=== PATIENT | female | born 1975 | race Caucasian/White ===

== ENCOUNTER 2020-06-04 12:35 | Emergency (ER) | payer MEDICARE, MEDICAID, SELFPAY ==
[2020-06-04 12:35] VITALS: BP 150/105; PULSE 100; RESP 20; TEMP 37.1; O2SAT 100; BMI 19.5
[2020-06-04 12:44] VITALS: BP 136/96; PULSE 96; RESP 16; O2SAT 100
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
[2020-06-04 13:18] LABS: Basophils % 0.5 %; Eosinophils # 0.1 10^3/uL (0.0-0.8); Hematocrit 45.3 % (37.0-47.0); Hemoglobin 14.6 g/dL (11.5-15.3); Lymphocytes # 2.7 10^3/uL (0.8-4.8); Lymphocytes % 33.3 %; Mean Corpuscular HGB Conc 32.2 g/dL (30.0-36.0); Mean Corpuscular Hemoglobin 30.2 pg (28.0-34.0); Mean Corpuscular Volume 93.8 fL (81-99); Mean Platelet Volume 10.1 fL (7.4-10.4); Monocytes # 0.4 10^3/uL (0.2-0.9); Monocytes % 5.3 %; Neutrophils # 4.75 10^3/uL (1.8-7.7); Neutrophils % 59.4 %; Nucleated Red Blood Cells % 0 %; Platelet Count 438 10^3/cmm (130-400); Red Blood Count 4.83 10^6/uL (4.1-5.3); Red Cell Distribution Width 12.4 % (12.1-15.1)
[2020-06-04 13:19] LABS: Alanine Aminotransferase 17 U/L (0-33); Albumin Level 4.5 g/dL (3.5-5.2); Alkaline Phosphatase 135 IU/L (35-105); Anion Gap 15.3 (5-19); Aspartate Amino Transferase 27 U/L (0-32); Blood Urea Nitrogen 9 mg/dL (6-20); Calcium 9.6 mg/dL (8.5-10.5); Carbon Dioxide 27 mmol/L (22-29); Chloride 98 mmol/L (98-107); Globulin 3.8 g/dL (1.3-4.6); Glomerular Filtration Rate 135.3 mL/min (90-130); Glucose 111 mg/dL (65-115); Lipase 37 U/L (13-60); Osmolality Calculated 281 mOsm/kg (285-295); Potassium 4.3 mmol/L (3.5-5.1); Sodium 136 mmol/L (136-145); Total Bilirubin 0.2 mg/dL (0.15-1.2); Total Protein 8.3 g/dL (6.6-8.7)
[2020-06-04] MEDS: iohexol 300 mg/mL 100 mL Btl IV (13:31)
[2020-06-04] MEDS: morphine 4 mg/mL SDV 1 mL IVP (14:37)
[2020-06-04] MEDS: ondansetron 2 mg/ML SDV 2 mL 4 MG IVP (14:37)
--- NOTE | 2020-06-04 14:49 | XRR_ITS ---
PROCEDURE INFORMATION: Exam: XR Chest, 1 View Exam date and time: 06/04/2020 2:50 PM Age: 44 years old Clinical indication: Condition or disease; Lung condition and disease; Pneumothorax; Additional info: L small pneomothorax TECHNIQUE: Imaging protocol: XR of the chest Views: 1 view. COMPARISON: CT chest abd pel w con* 06/04/2020 1:28 PM FINDINGS: Lungs: Unremarkable. No consolidation. Pleural space: Unremarkable. No pleural effusion. No pneumothorax. Heart/Mediastinum: Unremarkable. No cardiomegaly. Bones/joints: Unremarkable. XR/XR chest 1V portable [id number] IMPRESSION: No acute findings.
[2020-06-04 15:01] VITALS: BP 133/94; PULSE 109; RESP 21; O2SAT 98
[2020-06-04 15:18] VITALS: BP 133/84; PULSE 97; RESP 22; O2SAT 95
== END 2020-06-04 15:20 | disposition other institution (70) ==
PROVIDERS: Emergency Provider Family Medicine; Family Provider Physician Assistant Medical; PCP Nurse Practitioner Family
DX: S22.42XA Multiple fractures of ribs, left side, initial encounter for closed fracture (principal); S22.078A Other fracture of T9-T10 vertebra, initial encounter for closed fracture; S22.088A Other fracture of T11-T12 vertebra, initial encounter for closed fracture; S36.030A Superficial (capsular) laceration of spleen, initial encounter; S12.9XXA Fracture of neck, unspecified, initial encounter; Z86.19 Personal history of other infectious and parasitic diseases; V89.2XXA Person injured in unspecified motor-vehicle accident, traffic, initial encounter
CPT/HCPCS: 12345; 36415; 51702; 70450; 71045; 71260; 72125; 74177; 80053; 83690; 85025; 86850; 86900; 96374; 96375; 99283; J2270; J2405; Q9967

== ENCOUNTER 2022-04-27 19:20 | Emergency (ER) | payer MEDICARE, SELFPAY ==
[2022-04-27 19:50] VITALS: BP 124/83; PULSE 111; RESP 22; TEMP 37.4; O2SAT 96; BMI 18.5
[2022-04-27 20:36] LABS: Basophils % 0.7 %; Eosinophils % 0.3 %; Hematocrit 40.8 % (37.0-47.0); Hemoglobin 13.6 g/dL (11.5-15.3); Lymphocytes # 0.6 10^3/uL (0.8-4.8); Lymphocytes % 9.7 %; Mean Corpuscular HGB Conc 33.3 g/dL (30.0-36.0); Mean Corpuscular Hemoglobin 31.9 pg (28.0-34.0); Mean Corpuscular Volume 95.6 fl (81-99); Mean Platelet Volume 11.5 fL (7.4-10.4); Monocytes # 0.6 10^3/uL (0.2-0.9); Monocytes % 9.4 %; Neutrophils # 4.76 10^3/uL (1.8-7.7); Neutrophils % 79.7 %; Nucleated Red Blood Cells % 0 %; Platelet Count 191 10^3/cmm (130-400); Red Blood Count 4.27 10^6/uL (4.1-5.3)
[2022-04-27] MEDS: promethazine 25 mg/mL SDV 1 mL IM (20:50)
[2022-04-27 21:02] LABS: Alanine Aminotransferase 12 U/L (0-33); Albumin Level 4.2 g/dL (3.5-5.2); Alkaline Phosphatase 87 U/L (35-105); Anion Gap 14.6 (5-19); Aspartate Amino Transferase 15 U/L (0-32); Blood Urea Nitrogen 4 mg/dL (6-20); Calcium 9.2 mg/dL (8.5-10.5); Carbon Dioxide 22 mmol/L (22-29); Chloride 103 mmol/L (98-107); Globulin 3.4 g/dL (1.3-4.6); Glomerular Filtration Rate 108.6 mL/min (90-130); Glucose 96 mg/dL (65-115); Osmolality Calculated 279 mOsm/kg (285-295); Potassium 3.6 mmol/L (3.5-5.1); Sodium 136 mmol/L (136-145); Total Bilirubin 0.3 mg/dL (0.15-1.2); Total Protein 7.6 g/dL (6.6-8.7)
--- NOTE | 2022-04-27 22:26 | XRR_ITS ---
PROCEDURE INFORMATION: Exam: XR Chest Exam date and time: 04/27/2022 10:48 PM Age: 46 years old Clinical indication: Shortness of breath; Patient HX: SOB TECHNIQUE: Imaging protocol: Radiologic exam of the chest. Views: 1 view. COMPARISON: CR XR chest 1V portable [id number] 06/04/2020 2:58 PM FINDINGS: Lungs: Unremarkable. No consolidation. Pleural spaces: Unremarkable. No pleural effusion. No pneumothorax. Heart/Mediastinum: Unremarkable. No cardiomegaly. Bones/joints: Unremarkable. XR/XR chest 1V portable [id number] IMPRESSION: No acute findings.
--- NOTE | 2022-04-27 22:35 | W.ED.HA ---
HPI - Headache General: Chief Complaint: Headache Stated Complaint: headache, N/V Time Seen by Provider: 04/27/22 22:26 History of Present Illness: Ms. Singletary is a 46-year-old lady with history of fibromyalgia, hepatitis, psychiatric disorder presenting to the ER for generalized symptoms. History is somewhat limited by patient participation in history. She reports onset of symptoms with vomiting this morning associated with body aches. She has had nausea, vomiting, diarrhea multiple times with intermittent fevers though she has not measured temperature at home. Has tried Tylenol without significant relief. Intensity symptoms is moderate to severe. Course has worsened. Does have baseline headaches and this feels somewhat similar. No other specific changes in health, exacerbating, or alleviating factors identified. Onset (ago): day(s) Onset description: gradually Location: diffuse Severity: moderate Associated symptoms: Reports cough, malaise and nausea Review of Systems General: Reports: 10 or more systems reviewed and unremarkable except in HPI and below Const: Reports: malaise GI: Reports: nausea PFSH ED PFSH: Medical History Fibromyalgia Hepatitis B Hepatitis C Psychiatric care Physical Exam Const: COMMON NORMALS: alert GENERAL APPEARANCE: cooperative and well developed HENMT: COMMON NORMALS: normocephalic and atraumatic HEAD & SCALP: normocephalic and atraumatic Eye: COMMON NORMALS: conjunctivae normal CONJUNCTIVA: Yes conjunctivae normal SCLERA: sclerae normal Neck/C-Spine: COMMON NORMALS: supple GENERAL: Yes trachea midline Resp: COMMON NORMALS: clear to auscultation bilaterally EFFORT & INSPECTION: Yes able to speak in complete sentences and Yes tachypneic AUSCULTATION: clear to auscultation bilaterally Cardio: COMMON NORMALS: regular rhythm RATE: tachycardic RHYTHM: regular rhythm GI: COMMON NORMALS: Soft to palpation PALPATION: Yes Soft to palpation and No Tenderness to palpation present (GI) Extremity: GENERAL: Yes normal exam except as noted and No edema Neuro: COMMON NORMALS: moves all extremities SENSORIUM/ORIENTATION: Yes alert and No Orientation impaired Psych: COMMON NORMALS: mental status grossly normal and Normal thought process present THOUGHT PROCESS: Normal thought process present Course ED course: - Patient was seen and evaluated by me at bedside - Patient placed on cardiac monitors, IV access obtained - Initial evaluation notable for exam as above. Somewhat ill-appearing, nonfocal neuro exam. - Labs and xrays personally interpreted by or - Fluids, analgesia, and antiemetic (haldol) given - Labs notable for no leukocytosis, normal hemoglobin. Metabolic panel without acute electrolyte derangement. No UTI. COVID-positive. - Imaging notable for no lobar consolidation or pneumothorax. CT head negative for acute intracranial pathology. CT abdomen pelvis without acute inflammatory abnormality to explain abdominal symptoms. - Upon serial reexamination after treatment the patient was improved - Based on patient history, evaluation, and testing as interpreted the most likely cause of the patient's condition is symptoms related to COVID-19 - The results of ED evaluation were discussed with the patient including prescriptions and/or symptomatic cares (if applicable) including appropriate and responsible use, followup plan, and return precautions. The patient verbalized understanding and felt safe for discharge. - Patient discharged in satisfactory condition. Note: Click bubbles or prepopulated man in note writing are used for assistance with data collection and billing and are inherently more limited than narrative and other text portions of this note. Please use narrative for additional clinical history and defer to narrative/free test for any case of contradictory information. If information appears in only free text or click bubble it should be considered present or absent as reported. Please contact note copywriter for clarifications of clinical information or contradictory information. MDM is a brief summary, contradictory or erroneous seeming information should be clarified and full note should be reviewed. Vital Signs: Vital signs: Vital Signs Temperature 99.3 F 04/27/22 19:50 Pulse Rate 87 04/28/22 02:00 Respiratory Rate 18 04/28/22 02:00 Blood Pressure 125/88 04/28/22 02:00 Pulse Oximetry 95 04/28/22 02:00 Oxygen Delivery Ok thod 04/27/22 19:50 MDM - Headache Medical Decision Making 46-year-old female presenting with generalized illness for 2 days. Patient found to have COVID-19 which likely explains all symptoms. She is somewhat improved after treatment. Satisfactory for outpatient management as she is not requiring oxygen and is nontoxic in appearance. [place] discussed with patient, she wishes to proceed. Medical Records I reviewed the patient's medical records. Lab Data I reviewed the patient's lab results. : 04/27/22 20:29 04/27/22 20:29 Radiology Impressions Chest X-Ray 04/27/22 22:26 IMPRESSION: No acute findings. Abdomen/Pelvis CT 04/27/22 22:46 IMPRESSION: 1. Negative for acute inflammatory process in the abdomen or pelvis. 2. Bibasilar atelectasis. Head CT 04/27/22 22:46 IMPRESSION: No acute intracranial abnormality. Laboratory Results WBC 6.0 10^3/uL (4.0-10.0) 04/27/22: RBC 4.27 10^6/uL (4.1-5.3) 04/27/22: Hgb 13.6 g/dL (11.5-15.3) 04/27/22: Hct 40.8 % (37.0-47.0) 04/27/22: MCV 95.6 fl (81-99) 04/27/22: MCH 31.9 pg (28.0-34.0) 04/27/22 MCHC 33.3 g/dL (30.0-36.0) 04/27/22: RDW 12.0 % (12.1-15.1) L 04/27/22: Plt Count 191 10^3/cmm (130-400) 04/27/22 MPV 11.5 fL (7.4-10.4) H 04/27/22: Neut % (Auto) 79.7 % 04/27/22: Lymph % (Auto) 9.7 % 04/27/22: Lamb % (Auto) 9.4 % 04/27/22: Eos % (Auto) 0.3 % 04/27/22: Baso % (Auto) 0.7 % 04/27/22: Neut # (Auto) 4.76 10^3/uL (1.8-7.7) 04/27/22 Lymph # (Auto) 0.6 10^3/uL (0.8-4.8) L 04/27/22: Lamb # (Auto) 0.6 10^3/uL (0.2-0.9) 04/27/22: Eos # (Auto) 0.0 10^3/uL (0.0-0.8) 04/27/22 20:29 Baso # (Auto) 0.0 10^3/uL (0.0-0.1) 04/27/22 20: Nucleated RBC % (auto) 0 % 04/27/22 20: Nucleated RBCs # 0.0 /100WBC 04/27/22 20: Sodium 136 mmol/L (136-145) 04/27/22 20: Potassium 3.6 mmol/L (3.5-5.1) 04/27/22 20: Chloride 103 mmol/L (98-107) 04/27/22 20: Carbon Dioxide 22 mmol/L (22-29) 04/27/22: Anion Gap 14.6 (5-19) 04/27/22 20: BUN 4 mg/dL (6-20) L 04/27/22 20: Creatinine 0.6 mg/dL (0.5-0.9) 04/27/22: GFR Calculation 108.6 mL/min (90-130) 04/27/22 20: Glucose 96 mg/dL (65-115) 04/27/22 20: Calculated Osmolality 279 mOsm/kg (285-295) L 04/27/22: Calcium 9.2 mg/dL (8.5-10.5) 04/27/22 20: Total Bilirubin 0.3 mg/dL (0.15-1.2) 04/27/22 20: AST 15 U/L (0-32) 04/27/22: ALT 12 U/L (0-33) 04/27/22 20: Alkaline Phosphatase 87 U/L (35-105) 04/27/22 20: Total Protein 7.6 g/dL (6.6-8.7) 04/27/22 20: Albumin 4.2 g/dL (3.5-5.2) 04/27/22 20: Globulin 3.4 g/dL (1.3-4.6) 04/27/22 20:29 Urine Color Yellow (Yellow) 04/28/22 00:55 Urine Appearance Clear (CLEAR) 04/28/22 00:55 Urine pH 5 (5-7) 04/28/22 00:55 Ur Specific [place] 1.015 (1.005-1.030) 04/28/22 00:55 Urine Protein Neg (Negative) 04/28/22 00:55 Urine Glucose (UA) Norm (Normal) 04/28/22 00:55 Urine Ketones 1+ (Negative) H 04/28/22 00:55 Urine Blood 2+ (Negative) H 04/28/22 00:55 Urine Nitrate Negative (Negative) 04/28/22 00:55 Urine Bilirubin Neg (Negative) 04/28/22 00:55 Urine Urobilinogen Norm mg/dL (Negative) 04/28/22 00:55 Ur Leukocyte Esterase Negative (Negative) 04/28/22 00:55 Urine RBC 0-4 /hpf (0-2) H 04/28/22 00:55 Urine WBC None /hpf (0-5) 04/28/22 00:55 Ur Squamous Epith Cells 0-4 /hpf (0-5) H 04/28/22 00:55 Amorphous Sediment 1+ /hpf 04/28/22 00:55 Urine Bacteria Trace /hpf (NONE) 04/28/22 00:55 Urine Mucus 2+ /hpf 04/28/22 00:55 Urine Opiates Screen Negative ng/mL (Negative) 04/28/22 00:55 Ur Barbiturates Screen Negative ng/mL (Negative) 04/28/22 00:55 Ur Phencyclidine Scrn Negative ng/mL (Negative) 04/28/22 00:55 Ur Amphetamines Screen Negative ng/mL (Negative) 04/28/22 00:55 U Benzodiazepines Scrn Negative ng/mL (Negative) 04/28/22 00:55 Urine Cocaine Screen Negative ng/mL (Negative) 04/28/22 00:55 U Marijuana (THC) Screen Positive ng/mL (Negative) H 04/28/22 00:55 SARS-CoV-2 Ag (Rapid) Positive (Negative) H 04/27/22 23:18 Discharge Plan Discharge Patient Disposition: Home Clinical Impression: COVID-19 Condition: Stable Prescriptions: New ondansetron 4 mg tablet,disintegrating 4 mg PO Q8H PRN (Reason: nausea and vomiting) Qty: 15 0RF Paxlovid (EUA) 150 mg x 2- 100 mg tablet See Rx Instructions .ROUTE .COMPLEX Qty: 30 0RF Rx Instructions: orally per package directions No Action prednisone 10 mg tablet 10 mg PO DAILY cyclobenzaprine 10 mg tablet 10 mg PO TID menthol 3.5 % gel 1 applic TOPICAL QID Discharge Orders: Discharge ED (Routine); Ordered 04/28/22 Ordered By: Ronni Hernandez Discharge Diet: Usual diet Discharge Activity: Increase activity as tolerated Activity Restrictions/Additional Instructions: Thank you for visiting the emergency department. You were seen and evaluated for generalized illness. The cause of the symptoms is most likely related to COVID-19 infection. The treatment for COVID-19 is supportive. I will prescribe paxlovid which, as discussed, is authorized under emergency use authorization. You may also use [id number] medications however please do not exceed the daily recommended dosage. Please keep in mind that many namebrand medications contain the same active ingredients. Please ensure that you are staying hydrated. Please follow-up with your primary care provider. Return to the emergency department for worsening symptoms, inability to tolerate oral intake despite medication, oxygen saturation less than 90% at rest, or anything else that you are concerned about a feel needs emergency department evaluation. Coding Level of Care Code ED Community Health Education Coordinator for Binh Fwd Exam Comprehensive
--- NOTE | 2022-04-27 22:46 | CTR_ITS ---
PROCEDURE INFORMATION: Exam: CT Abdomen And Pelvis Without Contrast Exam date and time: 04/27/2022 11:42 PM Age: 46 years old Clinical indication: Nausea and vomiting; Prior surgery; Surgery type: Tubal; Patient HX: N/v; Additional info: N/v/d, generalized illness TECHNIQUE: Imaging protocol: Computed tomography of the abdomen and pelvis without contrast. Radiation optimization: All CT scans at this facility use at least one of these dose optimization techniques: automated exposure control; mA and/or kV adjustment per patient size (includes targeted exams where dose is matched to clinical indication); or iterative reconstruction. COMPARISON: CT chest abd pel w con* 06/04/2020 1:28 PM RADIATION DOSE METRICS: Total DLP (mGy-cm): 369.69 FINDINGS: Lungs: Bibasilar atelectasis. Liver: Normal. No mass. Gallbladder and bile ducts: Normal. No calcified stones. No ductal dilation. Pancreas: Normal. No ductal dilation. Spleen: Normal. No splenomegaly. Adrenal glands: Normal. No mass. Kidneys and ureters: Normal. No hydronephrosis. Stomach and bowel: Unremarkable. No obstruction. No mucosal thickening. Appendix: No evidence of appendicitis. Intraperitoneal space: Unremarkable. No free air. No significant fluid collection. Vasculature: Unremarkable. No abdominal aortic aneurysm. Lymph nodes: Unremarkable. No enlarged lymph nodes. Urinary bladder: Unremarkable as visualized. Reproductive: Unremarkable as visualized. Bones/joints: Unremarkable. No acute fracture. Soft tissues: Unremarkable. CT/CT abdomen pelvis wo con [id number] IMPRESSION: 1. Negative for acute inflammatory process in the abdomen or pelvis. 2. Bibasilar atelectasis.
--- NOTE | 2022-04-27 22:46 | CTR_ITS ---
PROCEDURE INFORMATION: Exam: CT Head Without Contrast Exam date and time: 04/27/2022 11:39 PM Age: 46 years old Clinical indication: Pain; Altered mental status/memory loss; Headache; Patient HX: AMS. C/O ROBLEDO. ; Additional info: Headache, AMS TECHNIQUE: Imaging protocol: Computed tomography of the head without contrast. Radiation optimization: All CT scans at this facility use at least one of these dose optimization techniques: automated exposure control; mA and/or kV adjustment per patient size (includes targeted exams where dose is matched to clinical indication); or iterative reconstruction. COMPARISON: CT head wo con* [id number] 06/04/2020 1:17 PM RADIATION DOSE METRICS: Total DLP (mGy-cm): 973.18 FINDINGS: Brain: Normal. No hemorrhage. Unremarkable white matter. No mass effect. Cerebral ventricles: No ventriculomegaly. Paranasal sinuses: Visualized sinuses are unremarkable. No fluid levels. Mastoid air cells: Visualized mastoid air cells are well aerated. Bones/joints: Unremarkable. No acute fracture. Soft tissues: Unremarkable. CT/CT head wo con* [id number] IMPRESSION: No acute intracranial abnormality.
[2022-04-27] MEDS: diphenhydrAMINE 50 mg/mL SDV 1mL 12.5 MG IVP (23:12)
[2022-04-27] MEDS: sodium chloride 0.9% 1,000 ML 999 ML IV (23:12)
[2022-04-27] MEDS: haloperidol inj 5 mg/mL INJ 1 mL 2 MG IVP (23:15)
[2022-04-27 23:41] VITALS: BP 122/71; PULSE 72; RESP 20; O2SAT 98
[2022-04-27 23:56] LABS: SARS Covid-2 Antigen Positive (Negative)
[2022-04-28 01:17] LABS: Amphetamines Screen Urine Negative (Negative); Barbiturates Screen Urine Negative (Negative); Benzodiazepines Screen Urine Negative (Negative); Cocaine Screen Urine Negative (Negative); Opiate Screen Urine Negative (Negative); PCP Screen Urine Negative (Negative); THC Screen Urine Positive (Negative)
[2022-04-28 01:36] LABS: Specific Gravity, Urine 1.015 (1.005-1.030); Urine Appearance Clear (CLEAR); Urine Color Yellow (Yellow); pH Urine 5 (5-7)
[2022-04-28 01:37] LABS: Add Urine Microscopic? YES; Bilirubin Urine Neg (Negative); Blood Urine 2+ (Negative); Glucose Urine UA Norm (Normal); Ketones Urine 1+ (Negative); Leukocyte Esterase Urine Negative (Negative); Nitrate Urine Negative (Negative); Protein Urine Neg (Negative); Urobilinogen Urine Norm (Negative)
[2022-04-28 01:38] LABS: Add Urine Culture? No; Amorphous Sediment Urine 1+ /hpf; Bacteria Urine TRACE /hpf; Mucus Urine 2+ /hpf; RBC Urine 0-4 /hpf (0-2); Squamous Epithelial Cell Urine 0-4 /hpf (0-5)
[2022-04-28 02:00] VITALS: BP 125/88; PULSE 87; RESP 18; O2SAT 95
== END 2022-04-28 02:26 | disposition home or self-care (01) ==
PROVIDERS: Family Medicine; Emergency Provider Emergency Medicine
DX: U07.1 COVID-19 (principal)
CPT/HCPCS: 70450; 71045; 74176; 80053; 80306; 81001; 85025; 87426; 96365; 96372; 96375; 99285; J1200; J1630; J2550; J3475; J7030

== ENCOUNTER 2022-08-10 17:21 | Emergency (ER) | payer MEDICARE, SELFPAY ==
[2022-08-10 17:58] VITALS: BP 120/89; PULSE 77; RESP 18; TEMP 36.4; O2SAT 96
--- NOTE | 2022-08-10 20:35 | W.ED.ABDPA2 ---
HPI - Abdominal Pain General: Chief Complaint: Abdominal Pain Stated Complaint: abd pain N/V Time Seen by Provider: 08/10/22 20:23 Source: patient Mode of arrival: ambulatory Limitations: no limitations History of Present Illness: 46-year-old female states she woke up from a nap at noon with a headache states she has migraine headaches this felt similar states that she had some nausea and vomiting with it and some slight epigastric pain states over the last 2 hours her headache is completely resolved her nausea resolved she is able tolerate p.o. fluids she states she feels much improved no fever Associated Symptoms: Reports nausea and vomiting; Denies chills, dysuria and fever(s) Review of Systems Const: Denies: fever(s), chills, body aches or change in appetite Eyes: Denies: blurry vision or eye discomfort ENMT: Denies: throat pain or dental pain Card: Denies: chest pain Resp: Denies: dyspnea GI: Reports: nausea and vomiting : Denies: dysuria Musc: Denies: neck pain or back pain Skin/Breast: Denies: rash Neuro: Reports: headache(s) Psych: Denies: depression Dale/Lymph: Denies: easy bruising All/Imm: Denies: urticaria PFSH ED PFSH: Medical History Fibromyalgia Hepatitis B Hepatitis C Psychiatric care Family History Mother Thyroid disease Social History Smoking and tobacco status: current every day smoker cigarettes Packs smoked per day: 1 Years cigarettes smoked: 20 Quit status (tobacco): has tried quititng Number of times tried to quit tobacco: 6 Second hand smoke exposure: No Smoking risk assessment/counseling performed?: No Alcohol intake: current Alcohol intake frequency: holidays/special occasions only Alcohol type: wine Desire information about alcohol rehabilitation?: No Counseling given: Yes Other alcohol counseling details: Alcohol & medications don't mix. Desire information about substance/drug rehabilitation?: No Counseling given: No Female Reproductive History: Spontaneous abortions: No Physical Exam Const: COMMON NORMALS: no acute distress, patient oriented x3 and healthy appearing HENMT: COMMON NORMALS: normocephalic and atraumatic HEAD & SCALP: normocephalic and atraumatic Eye: COMMON NORMALS: Equal, round and reactive pupils present and EOMs intact bilaterally PUPIL: Yes Equal, round and reactive pupils present Neck/C-Spine: COMMON NORMALS: full ROM and supple Chest: COMMONS NORMALS: normal inspection of the chest and normal palpation of entire chest wall Resp: COMMON NORMALS: normal respiratory effort, No retractions, No use of accessory muscles and clear to auscultation bilaterally AUSCULTATION: clear to auscultation bilaterally Cardio: COMMON NORMALS: regular rate, regular rhythm and No murmurs present (Cardio) RATE: regular rate RHYTHM: regular rhythm GI: COMMON NORMALS: Normal to inspection, nondistended, normoactive bowel sounds present, Soft to palpation, non-tender and no masses PALPATION: Yes Soft to palpation Extremity: COMMON NORMALS: normal to inspection and full ROM Neuro: COMMON NORMALS: patient oriented x3, moves all extremities and no focal motor deficits Psych: COMMON NORMALS: mental status grossly normal, Normal thought process present and cooperative THOUGHT PROCESS: Normal thought process present Skin: COMMON NORMALS: no rashes or lesions noted and no wounds GENERAL SKIN EXAM: no rashes or lesions noted Course Vital Signs: Vital signs: Vital Signs Temperature 97.5 F L 08/10/22 17:58 Pulse Rate 77 08/10/22 17:58 Respiratory Rate 18 08/10/22 17:58 Blood Pressure 120/89 08/10/22 17:58 Pulse Oximetry 96 08/10/22 17:58 Oxygen Delivery Me thod 08/10/22 17:58 MDM - Abdominal Pain Medical Decision Making Patient presents here with headache and possible vomiting she had some epigastric abdominal discomfort states her symptoms all completely resolved states that once her headache resolved she felt much improved. She is well-appearing here she been able tolerate p.o. I did offer to check blood work she states she feels much improved would just like to go home we will discharge with some Zofran she is to follow-up with PCP and return if worsening. Discharge Plan Discharge Patient Disposition: Home Clinical Impression: Headache, Vomiting Condition: Stable Prescriptions: New ondansetron 4 mg tablet,disintegrating 4 mg PO Q6H PRN (Reason: nausea and vomiting) Qty: 14 0RF No Action gabapentin 100 mg capsule 100 mg PO TID Qty: 90 5RF tizanidine 4 mg tablet 4 mg PO BID PRN (Reason: muscle spasticity) Qty: 30 1RF Discharge Orders: Discharge ED (Routine); Ordered 08/10/22 Ordered By: Arabella Carlson Referrals: Bk Conte DO [Primary Care Provider] - 1-3 days Discharge Diet: Advance as tolerated Discharge Activity: Resume usual activity Patient Instructions: Acute Headache (ED), Acute Nausea and Vomiting (ED) Coding Level of Care Code ED Undercutter Operator for Binh Bennett
[2022-08-10] MEDS: ondansetron 4 MG Tablet PO (20:38)
[2022-08-10 20:47] VITALS: BP 120/71; PULSE 83; RESP 17; O2SAT 98
[2022-08-10 21:23] LABS: Urine Appearance Hazy (CLEAR); Urine Color Yellow (Yellow)
[2022-08-10 21:24] LABS: Add Urine Microscopic? YES; Bacteria Urine 1+ /hpf; Bilirubin Urine 1+ (Negative); Blood Urine Trace (Negative); Glucose Urine UA Norm (Normal); Ketones Urine 2+ (Negative); Leukocyte Esterase Urine Trace (Negative); Mucus Urine 2+ /hpf; Nitrate Urine Negative (Negative); Protein Urine Neg (Negative); RBC Urine 0-4 /hpf (0-2); Specific Gravity, Urine 1.025 (1.005-1.030); Squamous Epithelial Cell Urine TOO NUMEROUS TO CNT /hpf (0-5); Urobilinogen Urine 1 mg/dL (Negative); WBC Urine 0-4 /hpf (0-5); pH Urine 5 (5-7)
[2022-08-10 21:25] LABS: Add Urine Culture? No; Amorphous Sediment Urine 1+ /hpf
== END 2022-08-10 20:48 | disposition home or self-care (01) ==
PROVIDERS: Emergency Provider Emergency Medicine; PCP Family Medicine
DX: R11.11 Vomiting without nausea (principal); R51.9 Headache, unspecified; Z86.19 Personal history of other infectious and parasitic diseases; F17.210 Nicotine dependence, cigarettes, uncomplicated
CPT/HCPCS: 81001; 99283; Q0162

== ENCOUNTER → 2022-10-20 14:18 | Outpatient (BNVA) | payer MEDICARE, SELFPAY | PROVIDERS: PCP Family Medicine; Visit Provider Family Medicine | DX: Z20.2 Contact with and (suspected) exposure to infections with a predominantly sexual mode of transmission (principal) | CPT/HCPCS: 87491; 87591; 87661 ==

== ENCOUNTER → 2022-12-15 10:42 | Outpatient (BNVA) | payer MEDICARE, SELFPAY | PROVIDERS: PCP Family Medicine; Visit Provider Family Medicine | DX: A59.9 Trichomoniasis, unspecified (principal); R39.15 Urgency of urination; R09.89 Other specified symptoms and signs involving the circulatory and respiratory systems | CPT/HCPCS: 80053; 81003; 85025; 87661 ==

== ENCOUNTER → 2023-03-16 08:55 | Outpatient (BNVA) | payer MEDICARE, SELFPAY | PROVIDERS: PCP Family Medicine; Visit Provider Otolaryngology | DX: K13.0 Diseases of lips (principal); B07.9 Viral wart, unspecified | CPT/HCPCS: 99203; 99204 ==

== ENCOUNTER 2023-03-22 11:35 | Day surgery (SDC) | payer MEDICARE, SELFPAY ==
[2023-03-21 14:14] VITALS: BMI 21.2
[2023-03-22] VITALS (11 sets, daily range): BP systolic 121–165; BP diastolic 71–98; PULSE 57–72; RESP 16–18; TEMP 36.2–36.4; O2SAT 96–99
--- NOTE | 2023-03-22 12:24 | W.PM.OPSUD ---
Surgery/Procedure H&P Update DATE OF PROCEDURE: March 22, 2023 DATE H&P PERFORMED: 03/16/23 H&P UPDATE INFORMATION: I have reviewed H&P completed within last 30 days, I have examined patient prior to procedure and No changes to prior documentation CHANGES TO PREVIOUS DOCUMENTATION: No changes PREOP DIAGNOSIS: Verruca form lesion right oral commissure and upper and lower lip PRIMARY INDICATION FOR PROCEDURE: Verruca form lesion in the right oral commissure including upper and lower lip PLANNED PROCEDURE: Operation Date: 03/22/23 13:40 Proposed Procedures p [id number] excision of upper and lower lip and oral commissure lesion right side B07.9(Not Applicable) - Richie Haley MD
[2023-03-22] MEDS: midazolam 1 mg/mL INJ 2 mL 2 MG IVP (12:26)
[2023-03-22] MEDS: sodium chloride 0.9% 1,000 ML 30 ML IV (12:27)
--- NOTE | 2023-03-22 12:44 | ANES.PREANE2 ---
Pre-Anesthetic Assessment Height/Weight: Height 1.6 m Weight 54.431 kg Temp Pulse Resp BP Pulse Ox O2 Del Method 97.6 F 62 18 131/85 99 Room Air 03/22/23 11:52 03/22/23 11:52 03/22/23 11:52 03/22/23 11:52 03/22/23 11:52 03/22/23 11:57 Preop Diagnosis: Verruca form lesion right oral commissure and upper and lower lip Operation Date: 03/22/23 13:40 Proposed Procedures p [id number] excision of upper and lower lip and oral commissure lesion right side B07.9(Not Applicable) - Richie Haley MD Familial anesthetic complications: none Was Beta Annmarie taken within 24 hours: N/A Was Clonidine taken within 24 hours: N/A Last intake: Intake Last Liquid Date 03/22/23 Last Liquid Time 05:00 Last Solid Date 03/21/23 Last Solid Time 20:00 Social No alcohol and No tobacco Exam alert, oriented x 3, clear to auscultation bilaterally and regular rate & rhythm Airway Mallampati: Class II Dentition: full Anesthetic Plan ASA status: 3 Anesthesia: General Risk of > 500 ml blood loss (7ml/kg in children): No Medications/Allergies Home Medications Medication Instructions Recorded Confirmed Last Taken Type omeprazole 10 mg capsule,delayed 10 mg PO DAILY PRN heartburn 10/29/22 03/21/23 02/17/23 History release tizanidine 4 mg tablet 4 mg PO BID PRN muscle spasticity 12/15/22 03/21/23 03/21/23 Rx #30 tabs bupropion HCl 150 mg 24 hr tablet, 150 mg PO QAM #30 tabs 02/04/23 03/21/23 03/22/23 Rx extended release (Wellbutrin XL) citalopram 40 mg tablet (Celexa) 40 mg PO DAILY #30 tabs 02/04/23 03/21/23 03/21/23 Rx quetiapine 50 mg tablet (Seroquel) 50 mg PO .HS #30 tabs 02/04/23 03/21/23 03/21/23 Rx gabapentin 100 mg capsule 100 mg PO DAILY 03/21/23 03/21/23 03/19/23 History Allergies Allergy/AdvReac Type Severity Reaction Status Date / Time acetaminophen [From Tylenol] Allergy Unknown Verified 03/16/23 09:07 tramadol [From Ultram] Allergy ADR-Nausea Verified 03/16/23 09:07 Latex, Natural Rubber AdvReac Mild ALGY-Rash Verified 03/21/23 14:10 Current Medications Generic Name Dose Route Start Last Admin Trade Name Freq PRN Reason Stop Dose Admin Sodium Chloride 1,000 mls @ 30 mls/hr 03/22/23 11:45 03/22/23 12:27 Sodium Chloride 0.9% IV 03/23/23 11:44 30 mls/hr .Q24H MILADY Administration Midazolam HCl 2 mg 03/22/23 11:43 03/22/23 12:26 Midazolam 1 Mg/Ml Inj 2 Ml IVP 2 mg ONCE PRN Administration Preop Anxiety PFSH Anesthesia Medical History Fibromyalgia Hepatitis B Hepatitis C Psychiatric care Family History Mother Thyroid disease Social History (Updated 03/21/23 @ 14:09 by Patrizia Philippe RN) Smoking and tobacco status: current every day smoker cigarettes Packs smoked per day: 1 Years cigarettes smoked: 20 Quit status (tobacco): has tried quititng Number of times tried to quit tobacco: 6 Second hand smoke exposure: No Smoking risk assessment/counseling performed?: No Alcohol intake: former Desire information about alcohol rehabilitation?: No Counseling given: Yes Other alcohol counseling details: Alcohol & medications don't mix. Substance/Drug Use: current Substance/Drug use frequency: daily Substance/Drug use type: Marijuana Other substance/drug use details: Pain & sleep. Desire information about substance/drug rehabilitation?: No Counseling given: No Female Reproductive History Date of last menstrual period: 08/15/21 Spontaneous abortions: No Data Anesthesia Cardiac Studies: No Data to Display
[2023-03-22] MEDS: ceFAZolin 2,000 MG in sodium chloride 0.9% (plus) 50 ML 100 MG IV (14:09)
[2023-03-22] MEDS: lidocaine-epi 2% 1.7mL Cartridge (OR Only) 10 ML XX (14:29)
[2023-03-22] MEDS: neomycin-poly-bacitracin oint 28 gm 1 APPLIC TOPICAL (14:43)
--- NOTE | 2023-03-22 14:50 | PM.OP ---
Operative Report Date of procedure: March 22, 2023 Pre-op diagnosis: Preop Diagnosis Verruca form lesion right oral commissure and upper and lower lip Post-op diagnosis: Irregular right oral commissure lesion with extension to upper and lower lips Post-op findings: Same Procedure done: Excision of right oral commissure lesion with upper and lower lip extension. Complex multilayer closure. Total length of incision 2.5 cm Implants: No implants Specimens removed/disposition: Right oral commissure lesion Pathology: Right oral commissure with upper and lower lip extension with lesion. Permanent section only. Marked with suture anterior lateral. Surgeon: Richie Haley MD Anesthesia: General and Local Estimated blood loss: 10 mL Complications: Complications encountered Findings: Right filiform verruca form type lesion right oral commissure extending externally and intraorally onto upper and lower lips. Did not extend deep. No deep induration. No ulceration. Brief History: 47-year-old female patient has had a growing whitish hair like lesion at her right oral commissure and extending to the upper and lower lip with small satellite lesions superiorly. Patient being brought to the operating room at this time to undergo excision of this lesion and complex repair. The procedure its risks and complications of been explained in detail in the office setting. These risks included bleeding infection numbness scarring swelling bruising cosmetic change change in the size of the opening of the mouth and more serious risks such as heart attack or stroke or not surviving the surgery. Need for additional treatment is also discussed as this could be something that needs to be more completely excised. With that understood informed consent was granted and witnessed. Procedure: Description of procedure: The patient was placed on the operating table in the supine position. Adequate general endotracheal tube anesthesia was obtained. A timeout was accomplished identifying the patient date of plan procedure allergies fire risk and medications given. With all in agreement the procedure continued. The patient was repositioned into a semirecumbent position. Marked the site was noted. The area was cleansed with alcohol. Then the upper and lower lips both medially and laterally and externally and extending posterior to the oral commissure externally was infiltrated with local utilizing a total of 5.1 mL of 2% Xylocaine with 1-100,000 epinephrine. Then the patient was prepped and draped in usual fashion. Sponges were placed intraorally to push the tongue out of the operative field. A marking pen was used to outline a fusiform excision pattern extending from the intraoral mucous membrane encompassing the lesion with visible margin and extending out to the oral commissure and lateral to the vermilion both upper and lower. This excision was approximately 2.5 cm in length. This was carried down into the musculature of the orbicularis lola muscle. In that plane it was excised with 15 blade and bipolar cautery. Then the lesion was completely excised and marked anterior lateral with silk suture. Sent for permanent section. Then the area was evaluated for any residual bleeding. Bipolar cautery was used to obtain complete hemostasis. The area was irrigated. Then it was closed in multiple layers using interrupted 4-0 chromic to close the muscular layer and then both internal and lateral submucosal and subcutaneous layers. Then the skin and mucosa were closed with interrupted 3-0 Vicryl suture. The sponges in the mouth were removed. The mouth was irrigated and suctioned. The face was cleansed externally. Drapes were removed. Neosporin ointment was applied over the incision. No dressing was placed. Patient was returned to anesthesia for wake-up and extubation. She tolerated the procedure well had an estimated blood loss of 10 mL and arrived in recovery in stable condition.
--- NOTE | 2023-03-22 16:00 | ANE.PACU2 ---
Inpatient post-anesthesia follow up: Airway intact: Yes Vital signs: Temperature 97.2 F Pulse Rate 60 Respiratory Rate 18 Blood Pressure 132/74 Pulse Oximetry 98 Oxygen Delivery Me thod Room Air Oxygen Flow Rate Fraction of Inspir ed Oxygen Hydration adequate: Yes Nausea and vomiting: No Pain level: 1 Mental status: Baseline
== END 2023-03-22 16:08 | disposition home or self-care (01) ==
PROVIDERS: PCP Family Medicine; Visit Provider Otolaryngology
PROC: (CPT 11443; principal; 2023-03-22 13:30)
DX: B07.9 Viral wart, unspecified (principal); F17.210 Nicotine dependence, cigarettes, uncomplicated; Z79.899 Other long term (current) drug therapy
CPT/HCPCS: 11443; 36415; 88305; J0690; J1100; J2250; J2405; J2704; J2710; J3010; J3490; J7030

== ENCOUNTER → 2023-03-30 13:16 | Outpatient (BNVA) | payer MEDICARE, SELFPAY | PROVIDERS: PCP Family Medicine; Visit Provider Otolaryngology | DX: Z48.817 Encounter for surgical aftercare following surgery on the skin and subcutaneous tissue (principal); K13.0 Diseases of lips | CPT/HCPCS: 99024 ==

== ENCOUNTER 2023-03-31 17:27 | Emergency (ER) | payer MEDICARE, SELFPAY ==
[2023-03-31 17:38] VITALS: BP 121/79; PULSE 76; RESP 15; O2SAT 97
--- NOTE | 2023-03-31 18:10 | W.ED.WOUNDLC ---
HPI - Wound/Laceration General: Chief Complaint: Wound/Laceration Stated Complaint: open mouth and ripped stiches Time Seen by Provider: 03/31/23 18:04 PFSH ED PFSH: Medical History Fibromyalgia Hepatitis B Hepatitis C Psychiatric care Family History Mother Thyroid disease Social History Smoking and tobacco status: current every day smoker cigarettes Packs smoked per day: 1 Years cigarettes smoked: 20 Quit status (tobacco): has tried quititng Number of times tried to quit tobacco: 6 Second hand smoke exposure: No Smoking risk assessment/counseling performed?: No Alcohol intake: former Desire information about alcohol rehabilitation?: No Counseling given: Yes Other alcohol counseling details: Alcohol & medications don't mix. Substance/Drug Use: current Substance/Drug use frequency: daily Other substance/drug use details: Pain & sleep. Desire information about substance/drug rehabilitation?: No Counseling given: No Female Reproductive History: Spontaneous abortions: No Course Vital Signs: Vital signs: Vital Signs Pulse Rate 76 03/31/23 17:38 Respiratory Rate 15 03/31/23 17:38 Blood Pressure 121/79 03/31/23 17:38 Pulse Oximetry 97 03/31/23 17:38 Oxygen Delivery Me thod Room Air 03/31/23 17:38 Discharge Plan Discharge Condition: Stable Prescriptions: No Action omeprazole 10 mg capsule,delayed release(DR/EC) 10 mg PO DAILY PRN (Reason: heartburn) bupropion HCl [Wellbutrin XL] 150 mg tablet extended release 24 hr 150 mg PO QAM Qty: 30 2RF citalopram [Celexa] 40 mg tablet 40 mg PO DAILY Qty: 30 2RF quetiapine [Seroquel] 50 mg tablet 50 mg PO .HS Qty: 30 2RF tizanidine 4 mg tablet 4 mg PO BID PRN (Reason: muscle spasticity) Qty: 30 5RF gabapentin 100 mg capsule 100 mg PO DAILY Referrals: Bk Conte DO [Primary Care Provider] - Coding Level of Care Code ED Glass Finisher for Chg Donald
--- NOTE | 2023-03-31 18:31 | ED_ITS ---
HPI - Wound/Laceration General: Chief Complaint: Wound/Laceration Stated Complaint: open mouth and ripped stiches Time Seen by Provider: 03/31/23 18:04 History of Present Illness: 47-year-old female presents emergency room with wound dehiscence around the corner of her mouth. Patient further reveals that about a week ago she was seen and evaluated by ENT and had a lesion removed around the right corner of her mouth. Suture was placed patient reveals that today while yawning she noticed that the sutures came apart. She denies bleeding, pain or drainage from the area. Review of Systems General: Reports: 10 or more systems reviewed and unremarkable except in HPI and below ENMT: Reports: other (corner of mouth with open wound ) PFS ED PFSH: Medical History Fibromyalgia Hepatitis B Hepatitis C Psychiatric care Family History Mother Thyroid disease Social History Smoking and tobacco status: current every day smoker cigarettes Packs smoked per day: 1 Years cigarettes smoked: 20 Quit status (tobacco): has tried quititng Number of times tried to quit tobacco: 6 Second hand smoke exposure: No Smoking risk assessment/counseling performed?: No Alcohol intake: former Desire information about alcohol rehabilitation?: No Counseling given: Yes Other alcohol counseling details: Alcohol & medications don't mix. Substance/Drug Use: current Substance/Drug use frequency: daily Other substance/drug use details: Pain & sleep. Desire information about substance/drug rehabilitation?: No Counseling given: No Female Reproductive History: Spontaneous abortions: No Physical Exam Const: COMMON NORMALS: no acute distress, average body habitus, patient oriented x3, no limitations, healthy appearing, alert and well nourished HENMT: OTHER: Can of the mouth on the right side with wound dehiscence. No active bleeding or drainage. Pain upon palpation. Chest: COMMONS NORMALS: normal inspection of the chest, normal palpation of entire chest wall, normal inspection of the breasts and normal palpation of the breasts Breast/axilla inspection: Yes normal inspection of the breasts BREAST/AXILLA PALPATION: Yes normal palpation of the breasts Resp: COMMON NORMALS: normal respiratory effort, No retractions, No use of accessory muscles, clear to auscultation bilaterally and percussion normal AUSCULTATION: clear to auscultation bilaterally PERCUSSION: percussion normal Neuro: COMMON NORMALS: patient oriented x3 SENSORIUM/ORIENTATION: Yes alert Course Consultations: Consultation #1: Call was made to Dr. Haley will see patient in emergency room. Consultation #2: Had a one-on-one discussion with Dr. Castrejon upon arriving to the emergency room. Vital Signs: Vital signs: Vital Signs Pulse Rate 67 03/31/23 19:03 Respiratory Rate 16 03/31/23 19:03 Blood Pressure 121/79 03/31/23 17:38 Pulse Oximetry 99 03/31/23 19:03 Oxygen Delivery Me thod Room Air 03/31/23 17:38 MDM - Wound/Laceration Medical Decision Making Patient was made comfortable emergency room. I spoke with Dr. Haley. He was able to see patient in the emergency room. Apply sutures to the area. Remained stable without any acute distress. Patient will be discharged home but is instruction. Differential Diagnosis Likely laceration, abscess, abrasion and avulsion of skin Discharge Plan Discharge Patient Disposition: Home Clinical Impression: Wound dehiscence Condition: Stable Prescriptions: No Action omeprazole 10 mg capsule,delayed release(DR/EC) 10 mg PO DAILY PRN (Reason: heartburn) bupropion HCl [Wellbutrin XL] 150 mg tablet extended release 24 hr 150 mg PO QAM Qty: 30 2RF citalopram [Celexa] 40 mg tablet 40 mg PO DAILY Qty: 30 2RF quetiapine [Seroquel] 50 mg tablet 50 mg PO .HS Qty: 30 2RF tizanidine 4 mg tablet 4 mg PO BID PRN (Reason: muscle spasticity) Qty: 30 5RF gabapentin 100 mg capsule 100 mg PO DAILY Discharge Orders: Discharge ED (Routine); Ordered 03/31/23 Ordered By: Jairo Zuñiga Referrals: Bk Conte DO [Primary Care Provider] - Richie Haley MD [Physician] - Discharge Diet: Advance as tolerated Discharge Activity: Resume usual activity Patient Instructions: Opioid Safety, Pain Management Coding Level of Care Code ED Collections Clerk for Chg Donald
[2023-03-31 19:03] VITALS: PULSE 67; RESP 16; O2SAT 99
== END 2023-03-31 19:06 | disposition home or self-care (01) ==
PROVIDERS: Emergency Provider Family Medicine; PCP Family Medicine
DX: T81.31XA Disruption of external operation (surgical) wound, not elsewhere classified, initial encounter (principal); Y83.8 Other surgical procedures as the cause of abnormal reaction of the patient, or of later complication, without mention of misadventure at the time of the procedure; Z86.19 Personal history of other infectious and parasitic diseases; F17.210 Nicotine dependence, cigarettes, uncomplicated
CPT/HCPCS: 99282

== ENCOUNTER → 2023-04-11 11:18 | Outpatient (BNVA) | payer MEDICARE, SELFPAY | PROVIDERS: PCP Family Medicine; Visit Provider Otolaryngology | DX: Z48.89 Encounter for other specified surgical aftercare (principal) | CPT/HCPCS: 99024 ==

== ENCOUNTER → 2023-04-19 10:29 | Outpatient (BNVA) | payer MEDICARE, SELFPAY | PROVIDERS: PCP Family Medicine; Visit Provider Otolaryngology | DX: B07.9 Viral wart, unspecified; Z48.817 Encounter for surgical aftercare following surgery on the skin and subcutaneous tissue | CPT/HCPCS: 99024; 99212 ==

== ENCOUNTER → 2023-04-26 11:14 | Outpatient (BNVA) | payer MEDICARE, SELFPAY | PROVIDERS: PCP Family Medicine; Visit Provider Otolaryngology | DX: B07.9 Viral wart, unspecified; Z48.817 Encounter for surgical aftercare following surgery on the skin and subcutaneous tissue | CPT/HCPCS: 99024; 99212 ==